=== PATIENT | male | born 1970 | race Caucasian/White ===

== ENCOUNTER 2017-12-10 01:09 | Emergency (ER) | payer BC ==
[~2017-12-10] VITALS: Ht 182.9 cm; Wt 147.6 kg
[~2017-12-10 01:09] MED LIST: ADULT LOW DOSE81 M1 PO; ADVIL200 MG PO; CLEOCIN300 MG PO; GLUCOPHAGE500 MG PO; KEFLEX500 MG PO; LOTENSIN40 MG PO; VERAPAMIL HCL240 MG PO; [UNRECOGNIZED DRUG - OTHER] PO
[2017-12-10 02:11] LABS: AMYLASE 72 IU/L (1-118); BASOPHIL (%) 0.9 % (0-1); BASOPHIL COUNT 0.1 K/uL (0-0.1); CHLORIDE 103 mEq/L (99-109); EOSINOPHIL (%) 1.3 % (0-5); EOSINOPHIL COUNT 0.2 K/uL (0-0.3); HEMATOCRIT 48.3 % (38.0-50.0); HEMOGLOBIN 17.2 G/DL (12.5-16.6); IMMATURE GRANULOCYTE (%) 0.4 % (0.0-0.7); LYMPHOCYTE (%) 26.5 % (15-42); LYMPHOCYTE COUNT 3.2 K/uL (1.0-2.8); MCH 30.4 PG (29.0-34.0); MCHC 35.6 G/DL (30.0-36.0); MCV 85.3 FL (86-99); MONOCYTE (%) 4.9 % (3-12); MONOCYTE COUNT 0.6 K/uL (0-0.8); PLATELET COUNT 189 K/uL (156-360); POTASSIUM 4.4 mEq/L (3.7-5.4); RBC DIS.WIDTH-CV 12.8 % (11.8-14.6); RBC DIS.WIDTH-SD 39.3 % (39-53); RED BLOOD COUNT 5.66 M/uL (4.00-5.50); SODIUM 135 mEq/L (136-147); WHITE BLOOD COUNT 12.1 K/uL (4.1-10.2)
[2017-12-10 02:13] LABS: GLUCOSE 229 mg/dL (70-99)
[2017-12-10 02:16] LABS: SERUM ETHYL ALCOHOL < 10 mg/dL
[2017-12-10 02:17] LABS: CREATININE 1.3 mg/dL (0.6-1.3); GFR ESTIMATE (CALCULATED) > 59 mL/min/ (58.99-99999)
[2017-12-10 02:18] LABS: UREA NITROGEN (BUN) 12 mg/dL (9-23)
[2017-12-10] MEDS ORDERED: NORCO 5/3251 TABLET PO (03:40)
[2017-12-10] MEDS ORDERED: FLEXERIL10 MG PO (03:40)
[2017-12-10 03:52] LABS: LIPASE 66 U/L (1.0-51.0)
[2017-12-10 04:10] VITALS: BP 132/82
== END 2017-12-10 04:26 | disposition home or self-care (01) ==
LOC: TRA 01:09 → EME 01:09 → TRA 04:26
PROVIDERS: Emergency Medicine
PROC: 2W38X1Z Immobilization of Right Upper Extremity using Splint (ICD-10-PCS; principal; 2017-12-10)
DX: S32.019A Unspecified fracture of first lumbar vertebra, initial encounter for closed fracture (principal); S46.811A Strain of other muscles, fascia and tendons at shoulder and upper arm level, right arm, initial encounter; S93.401A Sprain of unspecified ligament of right ankle, initial encounter; D72.829 Elevated white blood cell count, unspecified; V03.90XA Pedestrian on foot injured in collision with car, pick-up truck or van, unspecified whether traffic or nontraffic accident, initial encounter; Y93.01 Activity, walking, marching and hiking; Y92.410 Unspecified street and highway as the place of occurrence of the external cause; E11.9 Type 2 diabetes mellitus without complications; I10 Essential (primary) hypertension; Z79.84 Long term (current) use of oral hypoglycemic drugs
CPT/HCPCS: 70450; 72125; 72132; 73080; 73610; 74177; 80048; 81003; 82150; 83690; 85025; 86850; 86900; 86901; 99281; 99285; G0480; J2405; J7030